=== PATIENT | female | born 1990 | race African-American/Black ===

== ENCOUNTER → 2016-11-19 | Outpatient (CLI) | payer MEDICAID ==
[~2016-11-19] MED LIST: ASPI81CH37 CHEW; BETAMETHASONE SOD PHOS/ACETATE SUSP 30 MG/5 ML VIAL IM ONE; BUSP1TAB PO; IBUP-232 PO; OXYC1TAB63 PO; PREN29TA PO; [UNRECOGNIZED DRUG - REMARK]
== END ==
LOC: HOBG 08:40
PROVIDERS: ATTEND Obstetrics & Gynecology
DX: O26.93 Pregnancy related conditions, unspecified, third trimester (principal); O09.293 Supervision of pregnancy with other poor reproductive or obstetric history, third trimester; Z3A.33 33 weeks gestation of pregnancy; Z87.59 Personal history of other complications of pregnancy, childbirth and the puerperium
CPT/HCPCS: J0702

== ENCOUNTER → 2016-11-20 | Outpatient (CLI) | payer MEDICAID ==
[~2016-11-20] MED LIST changes: +BETAMETHASONE SOD PHOS/ACETATE SUSP 30 MG/5 ML VIAL ONE
== END ==
LOC: HOBG 09:06
PROVIDERS: ATTEND Obstetrics & Gynecology
DX: O26.93 Pregnancy related conditions, unspecified, third trimester (principal); O09.293 Supervision of pregnancy with other poor reproductive or obstetric history, third trimester; Z3A.33 33 weeks gestation of pregnancy; Z87.59 Personal history of other complications of pregnancy, childbirth and the puerperium
CPT/HCPCS: J0702

== ENCOUNTER 2016-12-16 07:42 | Inpatient (IN) | payer MEDICAID ==
[2016-12-16] VITALS (12 sets, daily range): BP systolic 125–146; BP diastolic 75–82; PULSE 57–76; RESP 17–20; TEMP 97.5–97.8; O2SAT 98–100
[~2016-12-16] VITALS: Ht 170.2 cm; Wt 82.0 kg
[~2016-12-16 07:42] MED LIST changes: -ASPI81CH37 CHEW; -BETAMETHASONE SOD PHOS/ACETATE SUSP 30 MG/5 ML VIAL IM ONE; -BETAMETHASONE SOD PHOS/ACETATE SUSP 30 MG/5 ML VIAL ONE; -IBUP-232 PO; -OXYC1TAB63 PO; -[UNRECOGNIZED DRUG - REMARK]
[2016-12-16] MEDS ORDERED: OXYTOCIN 10 UNIT/ML AMP ONE (08:27)
[2016-12-16] MEDS ORDERED: LACTATED RINGER'S 1000 ML INJ 1,000 ML IV ONE (10:00)
[2016-12-16] MEDS: LACTATED RINGER'S 1000 ML INJ 1,000 ML IV SCH ×3 (10:05→20:18)
[2016-12-16 10:06] LABS: AUTOMATED NEUTROPHIL # 5.5 TH/MM3 (1.8-7.7); BASOPHIL % 0.4 % (0.0-2.0); EOSINOPHIL # 0.2 TH/MM3 (0-0.4); EOSINOPHIL % 1.9 % (0.0-4.0); HEMATOCRIT 33.3 % (35.0-46.0); LYMPH % 26.8 % (9.0-44.0); LYMPHOCYTE # 2.4 TH/MM3 (1.0-4.8); MEAN CELL VOLUME 82.1 FL (80.0-100.0); MEAN CORPUSCULAR HEMOGLOBIN 27.2 PG (27.0-34.0); MEAN CORPUSCULAR HGB CONC 33.1 % (32.0-36.0); MONO % 9.9 % (0.0-8.0); PLATELET COUNT 286 TH/MM3 (150-450); RED BLOOD COUNT 4.05 MIL/MM3 (4.00-5.30); RED CELL DISTRIBUTION WIDTH 14.7 % (11.6-17.2)
[2016-12-16 10:06] LABS: BACTERIA, URINE RARE /hpf; BLOOD, URINE NEG (NEG); COMMENT (UR) CULT NOT INDICATED; CULTURE IF INDICATED CULT NOT INDICATED; GLUCOSE,URINE NEG (NEG); KETONE, URINE NEG (NEG); MUCUS URINE FEW /lpf (OCC); NITRITE,URINE NEG (NEG); PH, URINE 7.5 (5.0-8.5); SQUAMOUS EPITHELIAL CELL URINE 5 /hpf (0-5); TRANSITIONAL EPI CELLS, URINE <1 /hpf; URINE COLOR YELLOW (YELLW/STRAW)
[2016-12-16 10:09] LABS: HEMO FLAGS AUTO DIFF
[2016-12-16] MEDS ORDERED: ceFAZolin INJ 1,000 MG VIAL ONE (10:18)
[2016-12-16 10:48] LABS: PLATELET ESTIMATE SMEAR NORMAL (NORMAL); PLATELET MORPHOLOGY NORMAL (NORMAL); SCAN/DIFF AUTO DIFF CONFIRMED
[2016-12-16] MEDS ORDERED: CITRIC ACID-SODIUM CITRATE LIQ 30 ML UDC PO SCH (11:30)
--- NOTE | 2016-12-16 11:40 | PD.OB.DELI ---
Procedure Note Section Procedure Pre Op Diagnosis 37 week intrauterine , prior classical , prior 2 Post Op Diagnosis: Post Op Diagnosis Same now delivered Performed by Toby Vann Procedure: Repeat Low Transverse Sec Indication for delivery: Other (prior classical ) Informed consent obtained: For procedure (the risks benefits and alternatives were explained to the patient again and she consented to repeat delivery) Confirmed correct: Patient, Procedure, Site, Time-out taken Anesthesia: Spinal Medication prior to procedure: As documented in eMAR Monitoring during procedure: Blood pressure monitoring, furnace roaster Urinary catheter: Inserted using sterile technique Sterile preparation: With 2% chlorexidine (Hibiclens) Position: Supine with wedge to left side Operative Features Skin Incision: Transverse Uterine Incision: Low transverse w/knife / blunt ext Membranes Ruptured: Artificially, Appearance of fluid (clear) Presentation: Vertex Delivery of : Uneventful One Minute : 8 Five Minute : 8 Weight: 2670g Status of infant: Viable Placenta delivered: Intact Estimated blood loss: 600 Procedure tolerated: Well Maternal Condition: Stable Condition: Stable Procedure in detail The patient was taken to the operating room and after administration of a satisfactory spinal anesthetic was prepped and draped in the dorsal supine position with left lateral tilt. The skin was incised along the previous scar and sharp dissection was carried out down to the level of the fascia which was nicked in the midline and extended bilaterally with scissors. The fascia was from the underlying muscle sharply and bluntly dissection. The muscle was bluntly divided in the midline and the perineal cavity was bluntly entered. Bladder flap was crated with sharp dissection. The anterior surface of the uterus demonstrated a large venous sinus occupying most of the right lower uterine segment. A transverse hysterotomy was created in the lower uterine segment and membranes were encountered and ruptured with clear fluid returning. The vertex of the was elevated out of the pelvic inlet and delivered easily through the hysterotomy. Remainder the infant followed with gentle traction and fundal pressure. The cord was doubly clamped and cut and the baby was passed to waiting attendants. The fundus was massaged until the placenta passed spontaneously. It was grossly normal and apparently intact. Uterine cavity was wiped with a moist lap sponge. The hysterotomy was then closed with a running suture of 0 Monocryl. Additional [id number] sutures the right side of the lower uterine segment per required for control of bleeding in the venous sinus previously noted. Careful observation demonstrated excellent hemostasis. The paracolic gutters and posterior cul-de-sac were evacuated of blood and amniotic fluid. The uterus was replaced in the peritoneal cavity. The hysterotomy was again inspected and noted to be dry. The fascia was then closed with a running suture of #1 PDS. The septations tissue was closed with 3-0 Vicryl and the skin with 4-0 Vicryl and tissue glue. Toby Vann MD Dec 16, 2016 11:40
[2016-12-16] MEDS ORDERED: ONDANSETRON HCL 4 MG/2 ML VIAL ONE (11:43)
[2016-12-16] MEDS ORDERED: MORPHINE SULFATE PF 5 MG/10 ML VIAL ONE (11:43)
[2016-12-16] MEDS ORDERED: oxyCODONE/ACETAMINOPHEN 5 MG/325 MG TAB PO PRN (11:45)
[2016-12-16] MEDS ORDERED: SODIUM CHLORIDE 0.9% FLUSH 5 ML FLUSH IV PRN (11:45)
[2016-12-16] MEDS ORDERED: IBUPROFEN 600 MG TAB PO PRN (11:45)
[2016-12-16] MEDS ORDERED: OXYTOCIN 30 UNITS-500ML PREMIX 500 ML IV ONE (11:45)
[2016-12-16] MEDS ORDERED: EPIDURAL-NO SYSTEMIC NARCOTICS XX PRN (13:30)
[2016-12-16] MEDS ORDERED: EPIDURAL-DIPHENHYDRAMINE HCL 50 MG CAP PO PRN (13:30)
[2016-12-16] MEDS ORDERED: EPIDURAL-NALOXONE HCL 0.4 MG/ML AMP IV PRN (13:30)
[2016-12-16] MEDS ORDERED: EPIDURAL-DIPHENHYDRAMINE HCL 50 MG/ML VIAL IV PUSH PRN (13:30)
[2016-12-16] MEDS ORDERED: EPIDURAL-DO NOT ADMINISTER ANTICOAGULANTS XX PRN (13:30)
[2016-12-16] MEDS: KETOROLAC TROMETHAMINE 30 MG/ML (IVP) VIAL IV PUSH SCH ×2 (15:51→22:15)
[2016-12-16] MEDS ORDERED: LACTATED RINGER'S 1000 ML INJ 1,000 ML IV SCH (16:45)
[2016-12-16] MEDS ORDERED: SODIUM CHLORIDE 0.9% FLUSH 5 ML FLUSH IV SCH (21:00)
[2016-12-16] MEDS ORDERED: OXYTOCIN 30 UNITS-500ML PREMIX 500 ML IV PRN (21:45)
[2016-12-17] VITALS: BP 129/63; PULSE 64; RESP 20; TEMP 97.8
[2016-12-17 04:00] VITALS: BP 129/76; PULSE 78; RESP 20; TEMP 98.3
[2016-12-17] MEDS: IBUPROFEN 600 MG TAB PO PRN ×3 (04:27→20:30)
[2016-12-17 08:00] VITALS: BP 120/59; PULSE 72; RESP 18; TEMP 98.6
[2016-12-17 08:09] LABS: AUTOMATED NEUTROPHIL # 8.3 TH/MM3 (1.8-7.7); BASOPHIL % 0.2 % (0.0-2.0); EOSINOPHIL # 0.2 TH/MM3 (0-0.4); EOSINOPHIL % 1.6 % (0.0-4.0); HEMATOCRIT 29.2 % (35.0-46.0); HEMO FLAGS DIFF FINAL; LYMPH % 16.3 % (9.0-44.0); LYMPHOCYTE # 1.9 TH/MM3 (1.0-4.8); MEAN CORPUSCULAR HEMOGLOBIN 26.7 PG (27.0-34.0); MEAN CORPUSCULAR HGB CONC 32.2 % (32.0-36.0); MONO % 10.7 % (0.0-8.0); NEUT % 71.2 % (16.0-70.0); PLATELET COUNT 247 TH/MM3 (150-450); RED BLOOD COUNT 3.52 MIL/MM3 (4.00-5.30); RED CELL DISTRIBUTION WIDTH 14.3 % (11.6-17.2); WHITE BLOOD COUNT 11.7 TH/MM3 (4.0-11.0)
--- NOTE | 2016-12-17 09:25 | HHI.OB ---
Subjective Post Operative Day: 1 Remarks 26 year old female s/p repeat at 39/6 wks gestation, POD 1. AFVSS. Patient reports she is feeling well. Bleeding is decreasing and pain is well-controlled. She is breast feeding and bonding well with baby. Ambulating without difficulties. She is tolerating a diet without nausea or vomiting. She has not had a bowel movement. She has passed gas. Denies chest pain, dysuria, shortness of breath, or calf pain. (Veronica Mei MD R2) Remarks Patient seen and evaluated with resident under direct supervision, agree with assessment and plan. (Toby Vann MD) Objective Vitals/I&O Vital Signs Date Time Temp Pulse Resp B/P Pulse Ox O2 Delivery O2 Flow Rate FiO2 12/17/16 08:00 98.6 72 18 12/17/16 08:00 98.6 12/17/16 08:00 120/59 12/17/16 04:00 129/76 12/17/16 04:00 98.3 78 20 12/17/16 00:00 97.8 64 20 129/63 12/16/16 19:30 97.8 99 12/16/16 18:20 17 12/16/16 17:30 18 12/16/16 16:20 97.5 66 18 125/75 100 12/16/16 15:20 17 12/16/16 14:35 18 12/16/16 13:20 97.8 61 20 139/78 99 12/16/16 12:44 97.5 64 18 128/78 98 12/16/16 12:34 128/78 12/16/16 12:34 97.5 57 18 98 12/16/16 12:17 97.6 98 12/16/16 12:17 60 18 135/76 12/16/16 11:59 72 18 146/82 98 12/16/16 11:40 97.7 18 99 12/16/16 11:40 76 142/75 (Veronica Mei MD R2) Result Diagram: 12/17/16 0720 Objective Remarks GENERAL: Well-nourished, well-developed patient. CARDIOVASCULAR: Regular rate and rhythm without murmurs, gallops, or rubs. RESPIRATORY: Breath sounds equal bilaterally. No accessory muscle use. ABDOMEN/GI: Abdomen soft, non-tender. Incision: Clean, dry and intact. Fundus: Firm, non-tender at umbilicus. GENITOURINARY: Light to moderate bleeding. EXTREMITIES: No cyanosis or edema, non-tender, without signs of DVT. Medications and IVs Current Medications Medications (Trade) Dose Ordered Sig/Germaine Route Start Time Stop Time Status Last Admin Lactated Ringer's 1,000 ml @ 150 mls/hr Q6H40M IV 12/16/16 10:30 12/16/16 20:18 (Lr 1000 ml Inj) 1,000 ml @ 100 mls/hr Q10H IV 12/16/16 16:45 12/17/16 12:44 (NS Flush) 2 ml BID IV 12/16/16 21:00 (NS Flush) 2 ml UNSCH PRN IV 12/16/16 11:45 (Percocet 5-325 Mg) 1 tab Q4H PRN PO 12/16/16 11:45 (Percocet 5-325 Mg) 2 tab Q4H PRN PO 12/16/16 11:45 12/17/16 04:27 (M-M-R Ii Inj) 0.5 ml ONCE ONCE SQ 12/17/16 16:00 12/17/16 16:01 (Boostrix Inj) 0.5 ml ONCE ONCE IM 12/17/16 16:00 12/17/16 16:01 Miscellaneous Information NO SYSTEMIC NARCOTICS TO BE GIVEN FO... UNSCH PRN XX 12/16/16 13:30 12/17/16 13:29 (Narcan Inj) 0.4 mg UNSCH PRN IV 12/16/16 13:30 12/17/16 13:29 (Benadryl Inj) 25 mg Q6H PRN IV PUSH 12/16/16 13:30 12/17/16 13:29 (Benadryl) 50 mg Q6H PRN PO 12/16/16 13:30 12/17/16 13:29 Miscellaneous Information ALL NURSING DEPARTMENTS UNSCH PRN XX 12/16/16 13:30 12/17/16 13:29 (Motrin) 600 mg Q6H PRN PO 12/17/16 04:00 12/17/16 04:27 (Veronica Mei MD R2) Assessment/Plan Assessment and Plan 26 yo female s/p repeat POD 1. - AFVSS - Continue routine care - Motrin and Percocet PRN pain - Encourage OOB - Pelvic rest x 6 wks. Will need a f/u appt in 1wk for incision check with care for woman - Contraception: Options discussed. No decision made at this point. - Anticipate D/C tomorrow dw Dr. Vann (Veronica Mei MD R2) Veronica Mei MD R2 Dec 17, 2016 09:25 Toby Vann MD Dec 17, 2016 09:37
[2016-12-17] MEDS ORDERED: OXYC1TAB63 PO (09:27)
[2016-12-17] MEDS ORDERED: IBUP-232 PO (09:27)
--- NOTE | 2016-12-17 09:28 | HHI.DCPOC ---
Discharge Care Plan Diagnosis: (1) delivery delivered Report Symptoms to Your Doctor -Temperate above 100.5 degrees -Redness, of incision or excessive or foul smelling drainage -Unusual pain or calf pain -Increased vaginal bleeding -Painful or difficulty urinating -Feelings of extreme sadness or anxiety after 2 weeks Goals to Promote Your Health * To prevent worsening of your condition and complications * To maintain your health at the optimal level Directions to Meet Your Goals Take your medications as prescribed Follow your dietary instruction Follow activity as directed Ensure plenty of rest for recovery Drink fluids for hydration Keep your appointments as scheduled Take your immunizations and boosters as scheduled If your symptoms worsen call your PCP, if no PCP go to Urgent Care Center or Emergency Room Smoking is Dangerous to Your Health. Avoid second hand smoke Call the 24-hour crisis hotline for domestic abuse at Veronica Mei MD R2 Dec 17, 2016 09:28 Toby Vann MD Dec 17, 2016 09:36
[2016-12-17 14:53] VITALS: BP 121/67; PULSE 71; RESP 18; TEMP 98.3
[2016-12-17] MEDS ORDERED: MEASLES, MUMPS, RUBELLA VACCINE 0.5 ML VIAL SQ ONE (16:00)
[2016-12-17] MEDS ORDERED: DIPHTH/TETANUS/ACEL PERTUSSIS (BOOSTER) 0.5 ML VIAL/PFS IM ONE (16:00)
[2016-12-17] MEDS: oxyCODONE/ACETAMINOPHEN 5 MG/325 MG TAB PO PRN (16:11)
[2016-12-17 18:55] VITALS: BP 125/63; PULSE 75; RESP 18; TEMP 98.1; O2SAT 99
[2016-12-17 19:50] VITALS: BP 125/63; PULSE 75; RESP 18; TEMP 98.1; O2SAT 99
[2016-12-18] MEDS: oxyCODONE/ACETAMINOPHEN 5 MG/325 MG TAB PO PRN ×3 (00:27→09:59)
[2016-12-18] MEDS: IBUPROFEN 600 MG TAB PO PRN ×2 (03:59→09:59)
[2016-12-18] MEDS ORDERED: [UNRECOGNIZED DRUG - REMARK] (07:08)
--- NOTE | 2016-12-18 07:14 | HHI.OB ---
Subjective Post Operative Day: 2 Remarks 26 year old female s/p repeat at 37/0 wks gestation, POD 2. AFVSS. Patient reports she is feeling well. Bleeding is decreasing and pain is well-controlled. She is breast feeding and bonding well with baby. Ambulating without difficulties. She is tolerating a diet without nausea or vomiting. She has had a bowel movement. Denies chest pain, dysuria, shortness of breath, or calf pain. (Veronica Mei MD R2) Objective Vitals/I&O Vital Signs Date Time Temp Pulse Resp B/P Pulse Ox O2 Delivery O2 Flow Rate FiO2 12/17/16 19:50 98.1 12/17/16 19:50 75 18 125/63 99 12/17/16 18:55 98.1 75 18 125/63 99 12/17/16 14:53 98.3 71 18 121/67 12/17/16 08:00 98.6 72 18 12/17/16 08:00 98.6 12/17/16 08:00 120/59 (Veronica Mei MD R2) Result Diagram: 12/17/16 0720 Objective Remarks GENERAL: Well-nourished, well-developed patient. CARDIOVASCULAR: Regular rate and rhythm without murmurs, gallops, or rubs. RESPIRATORY: Breath sounds equal bilaterally. No accessory muscle use. ABDOMEN/GI: Abdomen soft, non-tender. Incision: Clean, dry and intact. Fundus: Firm, non-tender at umbilicus. GENITOURINARY: Light to moderate bleeding. EXTREMITIES: No cyanosis or edema, non-tender, without signs of DVT. Medications and IVs Current Medications Medications (Trade) Dose Ordered Sig/Germaine Route Start Time Stop Time Status Last Admin (Lr 1000 ml Inj) 1,000 ml @ 150 mls/hr Q6H40M IV 12/16/16 10:30 12/16/16 20:18 (NS Flush) 2 ml BID IV 12/16/16 21:00 (NS Flush) 2 ml UNSCH PRN IV 12/16/16 11:45 (Percocet 5-325 Mg) 1 tab Q4H PRN PO 12/16/16 11:45 12/18/16 03:59 (Percocet 5-325 Mg) 2 tab Q4H PRN PO 12/16/16 11:45 12/17/16 04:27 (Motrin) 600 mg Q6H PRN PO 12/17/16 04:00 12/18/16 03:59 (Veronica Mei MD R2) Assessment/Plan Assessment and Plan 26 yo female s/p repeat POD 2. - AFVSS - Continue routine care - Motrin and Percocet PRN pain - Encourage OOB - Pelvic rest x 6 wks. Will need a f/u appt in 1wk for incision check with care for woman - Contraception: Options discussed. No decision made at this point. Will defer to outpatient - Anticipate D/C today. Provided script that states patient received narcotics while in the hospital and at discharge at patient's request. wdw Dr. Perea (Veronica Mei MD R2) Attending Attestation Patient seen and evaluated with the resident under direct supervision, I agree with the assessment and plan. (Geovanni Perea MD) Veronica Mei MD R2 Dec 18, 2016 07:14 Geovanni Perea MD Dec 18, 2016 09:20
[2016-12-18 07:36] VITALS: BP 121/72; PULSE 79; RESP 18; TEMP 98.5
== END 2016-12-18 15:02 | disposition home or self-care (01) | DRG 766 ==
LOC: H2EB 07:42 → H1EA 13:00
PROVIDERS: ADMIT Obstetrics & Gynecology; ATTEND Obstetrics & Gynecology
PROC: 10D00Z1 Extraction of Products of Conception, Low, Open Approach (ICD-10-PCS; principal; 2016-12-16)
DX: O34.211 Maternal care for low transverse scar from previous cesarean delivery (principal); Z37.0 Single live birth; Z3A.37 37 weeks gestation of pregnancy
CPT/HCPCS: 59025; 81001; 85025; 86850; 86900; 86901; 90715; J0690; J1885; J2274; J2405; J2590; J7120

== ENCOUNTER 2017-05-01 08:33 | Day surgery (SDC) | payer OTHER ==
[2017-05-01] VITALS (7 sets, daily range): BP systolic 123–159; BP diastolic 77–96; PULSE 16–82; RESP 16–20; TEMP 98.6–98.8; O2SAT 94–97
[~2017-05-01] VITALS: Ht 172.7 cm; Wt 68.6 kg
[~2017-05-01 08:33] MED LIST changes: +HYDR-3533 PO; +IBUP-232 PO; +OXYC1TAB63 PO; +[UNRECOGNIZED DRUG - REMARK]
[2017-05-01] MEDS ORDERED: SODIUM CHLOR 0.9% 1000 ML IV SCH (10:00)
[2017-05-01 10:03] LABS: APTT (PATIENT) 30.8 SEC (24.3-30.1); INTERNATIONAL NORMALIZED RATIO 1.1 RATIO; PROTHROMBIN TIME - PATIENT 11.8 SEC (9.8-11.6)
[2017-05-01] MEDS ORDERED: LIDOCAINE HCL 1% 20 ML VIAL ONE (10:22)
[2017-05-01] MEDS ORDERED: MIDAZOLAM HCL 5 MG/5 ML VIAL ONE (10:42)
[2017-05-01] MEDS ORDERED: fentaNYL CITRATE 250 MCG/5 ML AMP ONE (10:42)
--- NOTE | 2017-05-01 12:11 | RADRPT ---
EXAM DATE/TIME: 05/01/2017 10:56 [facility] COMPARISON: No previous studies available for comparison. INDICATIONS : Mediastinal mass. SEDATION TIME: 30 minutes BIOPSY SITE: Right mediastinum MEDICATION(S): 1.) 2 mg midazolam (Versed) IV 2.) 100 mcg fentanyl (Sublimaze) IV DEVICE(S): 1.) 18 gauge Iyer blunt needle 2.) 20 gauge Temno core biopsy needle MEDICAL HISTORY : None. SURGICAL HISTORY : section. ENCOUNTER: Initial ACUITY: 1 day PAIN SCORE: 0/10 LOCATION: Bilateral chest A total of four core specimen(s) were obtained and sent to the laboratory for pathologic evaluation. PROCEDURE: 1. CT guided mediastinal biopsy. 2. Conscious sedation with continuous EKG and oximetry monitoring. 3. EKG and oximetry remained stable throughout the procedure. Prior to the procedure informed consent was obtained. Any appropriate prior imaging studies were rev iewed. Using automated exposure control and adjustment of the mA and/or kV according to patient size, radiat ion dose was kept as low as reasonably achievable to obtain optimal diagnostic quality images. The site was prepped in a sterile fashion. Full sterile technique was used, including cap, mask, katie rile gloves and gown and a large sterile sheet. Hand hygiene and 2% chlorhexidine and/or betadine/al cohol prep was utilized per protocol for cutaneous antisepsis. The skin and subcutaneous tissues wer e infiltrated with local anesthetic solution. Under CT guidance an 18 gauge blunt was carefully advanced through the paravertebral tissues that wer e expanded with sterile saline. It was advanced down to the posterior mediastinal mass and 4 cores o btained and submitted in RPMI. Follow-up CT scan reveals no hemorrhage or pneumothorax.. The patient tolerated the procedure well and there were no complications. The patient was returned to the Radiology Outpatient Unit in stable condition. CONCLUSION: Uncomplicated CT guided biopsy. Pathology is pending. Israel Lan MD FACR on May 01, 2017 at 12:06 Board Certified Radiologist. This report was verified electronically.
--- NOTE | 2017-05-01 13:26 | RADRPT ---
EXAM DATE/TIME: 05/01/2017 12:45 [facility] COMPARISON: No previous studies available for comparison. INDICATIONS : Post right lung biopsy MEDICAL HISTORY : None. SURGICAL HISTORY : None. ENCOUNTER: Initial ACUITY: 1 day PAIN SCORE: 6/10 LOCATION: Right chest FINDINGS: A single frontal expiratory view of the chest was performed. The lungs are symmetrically aerated and clear. No evidence of pneumothorax. Mediastinal structures are in the midline. The cardio-mediastinal contours and bronchopulmonary markings are unremarkable for an expiratory exam . Osseous structures are intact. CONCLUSION: Negative for an acute process. Israel Lan MD FACR on May 01, 2017 at 13:21 Board Certified Radiologist. This report was verified electronically.
== END 2017-05-01 14:35 | disposition home or self-care (01) ==
LOC: MERGE 08:33 → HRAD 08:33 → HRIP 08:40 → HRAD 14:35
PROVIDERS: ATTEND Internal Medicine
DX: R91.8 Other nonspecific abnormal finding of lung field (principal); Z01.818 Encounter for other preprocedural examination
CPT/HCPCS: 32405; 71010; 77012; 85610; 85730; 88305; 88312; 88333; 88341; 88342; J2250; J3010; J7030